=== PATIENT | female | born 1965 | race Caucasian/White ===

== ENCOUNTER 2020-02-05 13:50 | Inpatient (IN) | payer OTHER, SELFPAY ==
[2020-02-05] VITALS (20 sets, daily range): BP systolic 108–156; BP diastolic 55–80; PULSE 80–99; RESP 16–24; TEMP 38.2–38.7; O2SAT 93–99; BMI 30.9
--- NOTE | ~2020-02-05 | US_ITS ---
EXAMINATION: US right upper quadrant DATE: 02/06/2020 15:40 INDICATION: Elevated liver function tests TECHNIQUE: Multiple grayscale and Doppler ultrasound images of the abdomen were obtained. COMPARISON: None available FINDINGS: The head and and body of the pancreas are normal. The pancreatic tail is obscured by bowel gas. The liver is normal with normal echogenicity and echotexture. No surface nodularity. Normal hepa topetal flow in the main portal vein. The gallbladder is normal with no abnormal wall thickening, per icholecystic fluid or stones. The normal common bile duct measures 3 mm. There was no sonographic Mur phy sign. IMPRESSION: 1. Normal sonographic study of the gallbladder. Reviewed, dictated and finalized at location A.
--- NOTE | 2020-02-05 13:53 | ECG_ITS ---
Measurements Intervals [place] Rate: 89 P: 54 MO: 138 QRS: -40 QRSD: 105 T: 47 QT: 339 QTc: 414 Interpretive Statements SINUS RHYTHM POSSIBLE LEFT ATRIAL ENLARGEMENT LEFT AXIS DEVIATION LOW QRS VOLTAGE IN PRECORDIAL LEADS BORDERLINE T WAVE ABNORMALITY- HIGH LATERAL LEADS BASELINE ARTIFACT- I, II, AVR, V4-V6 BORDERLINE ECG Electronically Signed On 02-05-2020 13:58:30 CDT by Jay Ji D.O.
--- NOTE | 2020-02-05 14:00 | PC.NURSE ---
1400-pt to medical lab specialist per team 1358-pads applied, groin shaved, two IVs in place, blood sent per this nurse. dr mars and dr wood at patient bedside
--- NOTE | 2020-02-05 14:03 | ED.CHESTPAIN ---
HPI - Chest Pain General Chief Complaint: Chest Pain Stated Complaint: CP Time Seen by Provider: 02/05/20 13:53 Source: patient History of Present Illness HPI narrative: 54 years old white female complaining of intermittent chest pain over the last few days. Currently feeling okay. According to EMT, patient EKG showing acute STEMI. Patient came by ambulance, cardiology team at the bedside on arrival. I did not have a chance to ask other questions. Related Data Allergies Allergy/AdvReac Type Severity Reaction Status Date / Time NIFEDIPINE (Generic Allergy) Allergy Y Uncoded 01/30/03 15:04 Review of Systems Review of Systems: Narrative: CONSTITUTIONAL: Denies fever, chills, or sweats. EYES: Denies visual changes, redness, or discharge. ENT: Denies rhinorrhea, congestion, sore throat, or otalgia. CARDIOVASCULAR: Denies chest pain, palpitations, or edema. RESPIRATORY: Denies cough or dyspnea. GASTROINTESTINAL: Denies abdominal pain, nausea, vomiting, or diarrhea. GENITOURINARY: Denies dysuria or hematuria. SKIN: Denies rash or itching. MUSCULOSKELETAL: Denies back pain, joint pain, or myalgia. NEUROLOGIC: Denies headache, numbness, or weakness. PSYCHIATRIC: Denies anxiety or depression. [facility], [facility] Family History Family History Other Diabetes mellitus Family history of malignant neoplasm Family history of type 2 diabetes mellitus Hypertension Social History Social History Smoking status: Never smoker Second hand tobacco smoke exposure: No Alcohol intake: current Exam Narrative: Exam Narrative: General appearance: Well-developed, well-nourished Skin: Normal color Head: Normocephalic, nontraumatic Eyes: Clear conjunctiva ENT: Oropharynx normal, ears normal, nose normal Neck: Supple, nontender Chest and respiratory: Airway patent, no respiratory distress, no accessory muscle use Heart: Regular rate/rhythm Abdomen: Soft, nontender, no organomegaly, quiet bowel sounds Vascular: Normal peripheral pulses, normal capillary refill. Musculoskeletal: Normal range of motion, nontender back Neurologic: Alert and oriented ?3, CUSTOMER ENERGY SPECIALIST is normal as tested, no gross motor deficit Course Course Emergency Course: Chest pain resolved Vital Signs Vital signs: Vital Signs Temperature 38.2 C H 02/05/20 13:51 Pulse Rate 96 02/05/20 13:51 Respiratory Rate 20 02/05/20 13:51 Blood Pressure 156/76 H 02/05/20 13:51 Pulse Oximetry 97 02/05/20 13:51 Temperature 38.2 C H 02/05/20 13:51 Pulse Rate 92 02/05/20 14:01 Respiratory Rate 17 02/05/20 14:01 Blood Pressure 146/80 H 02/05/20 14:01 Pulse Oximetry 98 02/05/20 14:01 MDM - Chest Pain MDM Narrative Medical decision making narrative: STEMI is my concern. Possible posterior PA. Patient is going to cardiac cath immediately Critical Care Time Critical Care Time Critical Care Time: No Discharge Plan Discharge Prescriptions: No Action lisinopril-hydrochlorothiazide 20-12.5 mg tablet See Rx Instructions .ROUTE .COMPLEX Qty: 60 RF: 2 citalopram 20 mg tablet See Rx Instructions .ROUTE .COMPLEX Qty: 30 RF: 2 Interventions: Discharge Disposition Last Done: 02/05/20 14:05 IV Removed Last Done: 02/05/20 14:05 IV Stop Time Documented Last Done: 02/05/20 14:05 Discharge Date/Time: 02/05/20 14:00
[2020-02-05 14:06] LABS: Basophils Absolute Auto 0.1 K/mm3 (0.0-0.1); Basophils Percent Auto 0.4 % (0.2-1.2); Eosinophils Percent Auto 0.2 % (0-4.4); Hematocrit 46.5 % (37.0-47.0); Hemoglobin 15.4 g/dL (12.0-15.0); Immature Granulocyte Absolute 0.08 K/mm3 (0.00-0.031); Immature Granulocyte Percent A 0.6 % (0-0.5); Lymphocytes Absolute Auto 1.51 K/mm3 (0.9-3.2); Lymphocytes Percent Auto 10.8 % (18.3-44.2); Mean Corpuscular HGB Conc 33.1 g/dl (32-36); Mean Corpuscular Hemoglobin 29.4 pg (26-34); Mean Corpuscular Volume 88.7 fl (80-100); Mean Platelet Volume 10.5 fl (7.4-10.4); Monocytes Absolute Auto 1.6 K/mm3 (0.1-0.6); Monocytes Percent Auto 11.5 % (2.6-8.5); Neutrophils Absolute Auto 10.8 K/mm3 (1.3-6.7); Neutrophils Percent Auto 76.5 % (45.5-73.1); Platelet Count Result 301 k/mm3 (150-375); Red Blood Count 5.24 M/mm3 (4.2-5.4); Red Cell Distribution Width 12.5 % (11.5-14.5)
--- NOTE | 2020-02-05 14:13 | P.SEDATION_ITS ---
Moderate Sedation Note-Pt Data Patient Data Allergies Allergy/AdvReac Type Severity Reaction Status Date / Time NIFEDIPINE (Generic Allergy) Allergy Y Uncoded 01/30/03 15:04 Home Medications Medication Instructions Recorded Confirmed Type citalopram 20 mg tablet See Rx Instructions .ROUTE 11/27/19 Rx .COMPLEX #30 tablet lisinopril 20 See Rx Instructions .ROUTE 11/27/19 Rx mg-hydrochlorothiazide 12.5 mg .COMPLEX #60 tablet tablet Current Medications: Active Medications Nitroglycerin (Nitrostat Subl 0.4 Mg (1/150)) 0.4 mg SUBLINGUAL Q5MIN PRN PRN Reason: Chest Pain Sedation/Anesthesia: No previous sedation/anesthesia problems (including family history). [facility] Family History Family History Other Diabetes mellitus Family history of malignant neoplasm Family history of type 2 diabetes mellitus Hypertension Social History Social History Smoking status: Never smoker Second hand tobacco smoke exposure: No Alcohol intake: current Mod Sed Physical Exam Physical Exam Pre Procedural Exam: Normal: Appearance, Eyes, Ears, Nose, Neck, Throat, Airway, Lungs, Heart Size, Heart Rate, Heart Rhythm, Neuro Exam, Abdomen, Liver, Kidneys, Spleen, Breasts, Genitalia, Extremities and Skin Hours since solid foods: 8 Hours since liquid intake: 8 Internal Medicine - PN: Obj Da Vital Signs Vital Signs: Vital Signs - 24 hr 02/05/20 13:51 02/05/20 14:01 Temperature 38.2 C H Pulse Rate 96 92 Respiratory Rate 20 17 Blood Pressure 156/76 H 146/80 H Pulse Oximetry 97 98 Meds/Results Medications: Active Medications Generic Name Dose Route Start Last Admin Trade Name Freq PRN Reason Stop Dose Admin Nitroglycerin 0.4 mg 02/05/20 14:09 Nitrostat Subl 0.4 Mg (1/150) SUBLINGUAL Q5MIN PRN Chest Pain Labs CBC & Chem 7: 02/05/20 13:59 02/05/20 14:00 Labs: Laboratory Results - last 24 hr 02/05/20 13:59 WBC 14.0 H RBC 5.24 Hgb 15.4 H Hct 46.5 MCV 88.7 MCH 29.4 MCHC 33.1 RDW 12.5 Plt Count 301 MPV 10.5 H Immature Gran % (Auto) 0.6 H Neut % (Auto) 76.5 H Lymph % (Auto) 10.8 L [place] % (Auto) 11.5 H Eos % (Auto) 0.2 Baso % (Auto) 0.4 Lymph # (Auto) 1.51 [place] # (Auto) 1.6 H Eos # (Auto) 0.0 Baso # (Auto) 0.1 Abs Immat Gran (auto) 0.08 H Absolute Neuts (auto) 10.8 H Absolute Nucleated RBC 0.0 Nucleated RBC % 0.0 ASA Classification/Sedation ASA Classification/Sedation ASA Class: I Emergent: No Risks: Risks, benefits and alternatives explained and patient/family accepted plan for sedation. Patient re-evaluated immediately prior to sedation.
--- NOTE | 2020-02-05 14:13 | PM.IMHP ---
H&P: HPI History of Present Illness Chief complaint: CP Narrative: date of service 02/05/2020 Michaela Arreguin is a 54 year old female with past history of hypertension, anxiety or) started Wednesday having shortness of breath, cough, central chest discomfort radiating to the upper back, low-grade fever. Symptoms remained all day long Wednesday and yesterday. today [facility] to [facility] and EKG was done that shows ST depression V1 to V3 and EMS did EKG with leads V7 to v [address] elevations. she arrived to the emergency room and was chest pain-free and the EKG in the emergency room really looked unremarkable. She was rushed to public works laborer to define coronary anatomy. denies smoking, alcohol use, initial troponin came out after we finished the procedure was 27. white count 14 Review of Systems Review of Systems: All systems reviewed & are unremarkable except as noted in HPI and below Constitutional: Constitutional: Reports chills, Denies fatigue, Reports fever(s), Denies headache(s) and Denies snoring Eyes: Eyes: Denies eye discharge and Denies loss of vision ENT: Denies dizziness, Denies headache(s), Denies nasal discharge and Denies sore throat Cardiovascular: Cardiovascular: Reports as per HPI, Reports chest pain, Denies syncope, Denies rapid heart rate, Denies leg edema, Reports dyspnea, Reports dyspnea on exertion, Denies orthopnea and Denies paroxysmal nocturnal dyspnea Respiratory: Respiratory: Denies chest congestion, Reports cough, Reports dyspnea, Reports dyspnea on exertion, Denies snoring and Denies wheezing Gastrointestinal: Gastrointestinal: Denies abdominal pain, Denies diarrhea, Denies nausea and Denies vomiting Genitourinary: Genitourinary: Denies hematuria, Denies urinary frequency, Denies dysuria and Denies flank pain Musculoskeletal: Musculoskeletal: Denies myalgias, Denies arthralgias and Denies joint swelling Neurologic: Denies Abnormal speech present, Denies dizziness, Denies syncope, Denies headache(s), Denies focal weakness and Denies loss of vision Psychiatric: Psychiatric: Denies anxiety and Denies depression Endocrine: Endocrine: Denies cold intolerance, Denies fatigue and Denies heat intolerance Hematologic/Lymphatic: Hematologic/Lymphatic: Denies easy bleeding and Denies easy bruising Allergic/Immunologic: Allergic/Immunologic: Denies urticaria and Denies wheezing PMFSH Past Medical History Medical History (Updated 02/05/20 @ 15:37 by Vonnie Green MD) Hypertension Family History Family History Other Diabetes mellitus Family history of malignant neoplasm Family history of type 2 diabetes mellitus Hypertension Social History Social History Smoking status: Never smoker Second hand tobacco smoke exposure: No Alcohol intake: current Meds Home Medications and Allergies Home Medications Medication Instructions Recorded Confirmed Type citalopram 20 mg tablet See Rx Instructions .ROUTE 11/27/19 Rx .COMPLEX #30 tablet lisinopril 20 See Rx Instructions .ROUTE 11/27/19 Rx mg-hydrochlorothiazide 12.5 mg .COMPLEX #60 tablet tablet Allergies Allergy/AdvReac Type Severity Reaction Status Date / Time NIFEDIPINE (Generic Allergy) Allergy Y Uncoded 01/30/03 15:04 Vital Signs Vital Signs - 24 hr 02/05/20 13:51 02/05/20 14:01 Temperature 38.2 C H Pulse Rate 96 92 Respiratory Rate 20 17 Blood Pressure 156/76 H 146/80 H Pulse Oximetry 97 98 Exam Const: General: cooperative, healthy appearing, comfortable, no acute distress and well developed Nutritional Appearance: well nourished Orientation/consciousness: patient oriented x3 HENMT: Head: normal to inspection, normocephalic and atraumatic Ears: hearing grossly normal bilaterally and external ears normal General nose exam: Normal external nose present and
--- NOTE | 2020-02-05 14:13 | WPDCARDPROC ---
Cardiac Cath Procedure Note Date of procedure:: 02/05/20 Performing physician:: Vonnie Green MD date of service 02/05/2020 Indication:: posterior STEMI. Brief clinical history:: Michaela Arreguin is a 54 year old female with past history of hypertension, anxiety or) started Wednesday having shortness of breath, cough, central chest discomfort radiating to the upper back, low-grade fever. Symptoms remained all day long Wednesday and yesterday. today she was brought in to [facility] to rule out COVID and EKG was done that shows ST depression V1 to V3 and EMS did EKG with leads V7 to v [address] elevations. she arrived to the emergency room and was chest pain-free and the EKG in the emergency room really looked unremarkable. She was rushed to laborer airport maintenance to define coronary anatomy. denies smoking, alcohol use, initial troponin came out after we finished the procedure was 27. white count 14 Procedure Procedure performed:: 1-Moderate sedation that started at 2:17 p.m. and ended at 3:12 p.m. using 3 mg of Versed and 50mcg fentanyl. The registered nurse was love schultz 2-Selective left and right coronary angiogram. 3-Left heart catheterization with measurement of LVEDP and measurement of gradient across aortic valve. 4- LV angiogram. 5- deployment drug-eluting stent 3 x 18 Xience to proximal mid left circumflex artery with RAYSA flow was 0 before intervention of the after intervention. 4-Right common femoral arterial angiogram. Sedation/Medication given:: Moderate sedation. Access site:: Right common femoral artery. hemostasis: manual compression Estimated blood loss:: 10cc Procedure note:: After informed consent patient was brought in to laborer airport maintenance with the was draped and prepped in usual manner. Moderate sedation was given and the right groin was infiltrated using 1% lidocaine. Five St Helenian sheath was obtained using micropuncture needle and the modified Seldinger technique. Selective left coronary angiogram was done using JL4 catheter with the tip of the catheter placed in the left main coronary artery. after that we tried to engage the left main coronary artery and we tried CLS 3.5, q.4, Q 3.5, JL4, and eventually we engaged that using CLS 3 guide catheter. After that coronary lead wire was advanced to distal left circumflex artery. Balloon angioplasty done using 2.5 x 15 balloon with inflation done on the 10 atmospheres for 20 seconds with 2 inflations. And then deployed drug-eluting stent Xience 3 x 18 Covering the proximal and midportion of the left circumflex artery with deployment done and the number pressure for 23 seconds.Selective right coronary angiogram was done using JR4 catheter with the tip of the catheter placed to the right coronary artery. After that 5 [place] pigtail catheter was advanced across the aortic valve into the left ventricle with measurement of LVEDP and measurement of gradient across aortic valve. LV angiogram. Right common femoral arterial angiogram was done. Findings:: 1- left coronary artery is a large artery that divides into large LAD, large circumflex artery. Left main is Free of disease. 2- left anterior descending artery is a large artery that runs and wraps around the apex. it is large in caliber proximally with minimal irregularities. The mid segment gives rise to large diagonal branch. The diagonal branch has mid 40%. Then the left anterior descending artery continues with diffuse 30% stenosis. At the very distal end at the apex with the arteries very tiny there is about 90% stenosis. 3- left circumflex artery is a large artery And codominant and occluded in the mid segment. After opening the artery and use ice to small om 1 distally and small OM2 and small caliber PDA about looked with minimal irregularities. 4- right coronary artery is large artery and codominant with diffuse minimal irregularities in the mid segment 50%. 5- LVEDP was 15 mm Hg and no gradient across aortic valve. 6- opening arterial pr
[2020-02-05 14:20] LABS: INR 1.1; Prothrombin Time 14.2 Seconds (11.1-14.7)
[2020-02-05 14:21] LABS: Partial Thromboplastin Time 27.6 SECONDS (22.3-36.8)
[2020-02-05 14:41] LABS: Blood Urea Nitrogen 13 mg/dL (7-17); Carbon Dioxide 34 mmol/L (22-30); Chloride 98 mmol/L (98-107); Cholesterol 207 mg/dL (0-200); Estimated CRCL calculation 88 ml/min; Estimated Glomerular Filt Rate > 60; Glucose 136 mg/dL (65-105); HDL Direct 49 mg/dL; Potassium 3.7 mmol/L (3.4-5.0); Sodium 134 mmol/L (137-145); Triglycerides 121 mg/dL (<150)
[2020-02-05 14:42] LABS: Alanine Aminotransferase 51 U/L (4-35); Albumin Level 4.2 g/dL (3.5-5.1); Alkaline Phosphatase 100 U/L (38-126); Aspartate Amino Transferase 233 U/L (14-36); Bilirubin,Total 1.5 mg/dL (0.2-1.3); Blood Urea Nitrogen 13 mg/dL (7-17); Calcium 8.9 mg/dL (8.4-10.2); Carbon Dioxide 35 mmol/L (22-30); Chloride 98 mmol/L (98-107); Estimated CRCL calculation 88 ml/min; Estimated Glomerular Filt Rate > 60; Glucose 136 mg/dL (65-105); Potassium 3.7 mmol/L (3.4-5.0); Sodium 134 mmol/L (137-145)
[2020-02-05 14:51] LABS: LDL Cholesterol Direct 117 mg/dL
--- NOTE | 2020-02-05 15:26 | ECG_ITS ---
Measurements Intervals [place] Rate: 86 P: 58 [place]: 153 QRS: -33 QRSD: 91 T: 49 QT: 358 QTc: 430 Interpretive Statements SINUS RHYTHM LOW QRS VOLTAGE IN PRECORDIAL LEADS INFERIOR INFARCT, AGE INDETERMINATE BORDERLINE T WAVE ABNORMALITY- ANTEROLAT/LAT LEADS BASELINE ARTIFACT- I, III, AVR, AVL ABNORMAL ECG Electronically Signed On 02-06-2020 10:21:43 CDT by Jay Ji D.O.
--- NOTE | 2020-02-05 16:09 | ADMGEN ---
This patient, Michaela Arreguin, was admitted to Intensive Care Unit-3. Patient/family oriented to hospital policies and general routines including ID bracelet, bed and alarms, visiting hours, pain management, procedures, bathroom and other care routines, personal items, smoking policy, room service/diet, and visiting hours. Valuables list has been completed. Information on how to activate the Rapid Response Team has been discussed. Patient/Family are encouraged to report perceived risks to care and to ask questions if they do not understand what they are told or what they should do.
[2020-02-05] MEDS: SODIUM CHLORIDE 0.9% IV 1,000 ML 100 ML IV CONT (16:54)
[2020-02-05] MEDS: METOPROLOL TARTRATE 12.5 MG TABLET PO (21:13)
[2020-02-05] MEDS: TICAGRELOR 90 MG TABLET PO (21:14)
[2020-02-05] MEDS: TEMAZEPAM 15 MG CAPSULE PO (22:20)
[2020-02-06] VITALS (15 sets, daily range): BP systolic 80–143; BP diastolic 43–82; PULSE 78–99; RESP 16–20; TEMP 36.9–37.7; O2SAT 93–100
[2020-02-06] MEDS: ACETAMINOPHEN 325 MG TABLET 650 MG PO (08:01)
[2020-02-06 08:02] LABS: Basophils Percent Auto 0.3 % (0.2-1.2); Eosinophils Percent Auto 0.2 % (0-4.4); Hematocrit 39.9 % (37.0-47.0); Hemoglobin 13.2 g/dL (12.0-15.0); Immature Granulocyte Absolute 0.07 K/mm3 (0.00-0.031); Immature Granulocyte Percent A 0.6 % (0-0.5); Lymphocytes Absolute Auto 1.44 K/mm3 (0.9-3.2); Lymphocytes Percent Auto 12.4 % (18.3-44.2); Mean Corpuscular HGB Conc 33.1 g/dl (32-36); Mean Corpuscular Hemoglobin 29.3 pg (26-34); Mean Corpuscular Volume 88.7 fl (80-100); Mean Platelet Volume 10.4 fl (7.4-10.4); Monocytes Absolute Auto 1.2 K/mm3 (0.1-0.6); Monocytes Percent Auto 9.9 % (2.6-8.5); Neutrophils Absolute Auto 8.9 K/mm3 (1.3-6.7); Neutrophils Percent Auto 76.6 % (45.5-73.1); Platelet Count Result 286 k/mm3 (150-375); Red Cell Distribution Width 12.8 % (11.5-14.5); White Blood Count 11.6 K/mm3 (4.5-10.0)
[2020-02-06] MEDS: METOPROLOL TARTRATE 12.5 MG TABLET PO ×2 (08:02→20:11)
[2020-02-06] MEDS: ATORVASTATIN 40 MG TABLET PO (08:02)
[2020-02-06] MEDS: TICAGRELOR 90 MG TABLET PO ×2 (08:02→20:11)
[2020-02-06 08:19] LABS: D Dimer 0.23 ug/mL (<0.48)
[2020-02-06 08:23] LABS: Alanine Aminotransferase 43 U/L (4-35); Albumin Level 3.4 g/dL (3.5-5.1); Alkaline Phosphatase 90 U/L (38-126); Aspartate Amino Transferase 131 U/L (14-36); Bilirubin,Total 1.4 mg/dL (0.2-1.3); Blood Urea Nitrogen 12 mg/dL (7-17); Calcium 8.1 mg/dL (8.4-10.2); Carbon Dioxide 28 mmol/L (22-30); Chloride 102 mmol/L (98-107); Estimated CRCL calculation 97 ml/min; Estimated Glomerular Filt Rate > 60; Glucose 178 mg/dL (65-105); Lactate Dehydrogenase 1621 U/L (313-618); Magnesium 1.9 mg/dL (1.6-2.3); Phosphorus 2.2 mg/dL (2.5-4.5); Potassium 3.3 mmol/L (3.4-5.0); Sodium 133 mmol/L (137-145)
--- NOTE | 2020-02-06 08:25 | WPDCNINT ---
Assessment and Plan Assessment and plan (1) STEMI (ST elevation myocardial infarction): Code(s): I21.3 - ST elevation (STEMI) myocardial infarction of unspecified site Status: Acute Assessment and Plan: Patient presented with chest pain, shortness of breath, cough, fevers EKG showed ST-elevation OK status post PTCA/PCI with MADI x1 to left circumflex -cardiology following the patient closely -continue aspirin, statin, metoprolol, Brilinta, (2) Suspected 2019 novel coronavirus infection: Code(s): Z20.828 - Contact with and (suspected) exposure to other viral communicable diseases Status: Acute Assessment and Plan: Patient was symptoms of shortness of breath, cough, fevers with a T-max of 101.7? -SARS-CoV-2 PCR has been obtained and pending -patient on droplet, airborne, contact isolation/precautions -D-dimer within normal limits, LDH is elevated, -ferritin and CRP pending (3) Hypertension: Qualifiers: Hypertension type: essential hypertension Qualified Code(s): I10 - Essential (primary) hypertension Code(s): I10 - Essential (primary) hypertension Status: Acute Assessment and Plan: Patient with essential hypertension, continue metoprolol (4) Hyperlipidemia: Qualifiers: Hyperlipidemia type: unspecified Qualified Code(s): E78.5 - Hyperlipidemia, unspecified Code(s): E78.5 - Hyperlipidemia, unspecified Status: Acute Assessment and Plan: Continue statin Additional Plan Discussed with patient in details regarding her symptoms and that this SARS-CoV-2 PCR has been obtained pending. She is aware that the inflammatory markers have been ordered. Currently on room air with good O2 sats and no symptoms of cough or shortness of breath, denies chest pain. Code status: Full code Critical care time spent: 41 minutes Due to a high probability of clinically significant, life threatening deterioration, the patient required my highest level of preparedness to intervene emergently and I personally spent this critical care time directly and personally managing the patient. This critical care time included obtaining a history; examining the patient; pulse oximetry; ordering and review of studies; arranging urgent treatment with development of a management plan; evaluation of patient's response to treatment; frequent reassessment; and discussions with other providers. It was exclusive of separately billable procedures and treating other patients and teaching time. Please see Assessment and Plan section and the rest of the note for further information on patient assessment and treatment Double Head Machine Operator Consult Note Consult date: 02/06/20 Time Seen: 07:08 Reason for consult: STEMI, status post PTCA/PCI with MADI x1 to left circumflex HPI: Michaela Arreguin is a 54 year old female with past medical history of essential hypertension and anxiety presented to the ED via EMS with chest pain radiating to the back, shortness of breath, cough and low-grade fever with started on 02/03/2020. Patient continued to have symptoms all day on 02/02 and to 02/03 and presented to the hospital on 02/05/2020. EKG with ST depression from we want to V3. The EKG done by the EMS showed ST elevations. Patient was emergently taken to the cardiac wood preserving plant laborer for coronary angiogram. Patient had a PTCA/PCI with MADI to left circumflex. Patient was transferred to the ICU for further management. Given her symptoms of chest pain, shortness of breath, cough and low-grade fevers patient was swabbed for SARS-CoV-2 PCR. Patient seen and examined this morning in the ICU. Remains on room air with 97 to 100% oxygen saturations. Patient denies any chest pain, shortness of breath, nausea vomiting at this time. Patient has been febrile low-grade fevers overnight and a T-max of 101.7? last night. Patient's lymphocyte percentage is low. Does not have any other complaints. Urine output has been adequate. LDH is
[2020-02-06 08:38] LABS: Hemoglobin A1C 6.2 % (<5.7)
[2020-02-06] MEDS: ASPIRIN 81 MG ENTERIC TABLET PO (08:51)
[2020-02-06 09:15] LABS: Hepatitis B Surface Antigen Negative (Negative)
[2020-02-06 09:21] LABS: HAV RESULT Negative (Negative); Hepatitis B Core IgM Result Negative (Negative)
[2020-02-06 09:28] LABS: CRP 18.2 mg/dL (<1.0)
[2020-02-06 09:33] LABS: Hepatitis C Virus Antibody Negative (Negative)
[2020-02-06] MEDS: POTASSIUM CHLORIDE 20 MEQ TABLET 40 MEQ PO (10:55)
--- NOTE | 2020-02-06 11:10 | PM.CNCAR ---
History of Present Illness History of Present Illness Consult date/time: 02/06/20 11:10 Date of service-02/06/2020 Chief complaint: Reason For Visit: CP [facility] Past Medical History Medical History (Updated 02/06/20 @ 08:37 by Tyrone Staley MD) Hypertension Family History Family History Other Diabetes mellitus Family history of malignant neoplasm Family history of type 2 diabetes mellitus Hypertension Social History Social History Smoking packs per day: 0.5 Smoking cigarettes per day: 10.0 Years smoked: 20 Smoking pack-years: 10.00 Smoking status: Former smoker Tobacco type: cigarettes Second hand tobacco smoke exposure: No Smoking end date: 08/09/04 Alcohol intake: current Drinks per week: 1 Substance use: never Gender identity (if verbalized by the patient): Female Spiritual care concerns: No Meds Home Medications and Allergies Home Medications Medication Instructions Recorded Confirmed Type citalopram 20 mg PO DAILY 02/05/20 02/05/20 History lisinopril-hydrochlorothiazide 1 tablet PO BID 02/05/20 02/05/20 History Allergies Allergy/AdvReac Type Severity Reaction Status Date / Time NIFEDIPINE (Generic Allergy) Allergy Y Uncoded 01/30/03 15:04 Vital Signs Vital Signs - 24 hr 02/05/20 13:51 02/05/20 14:01 02/05/20 15:45 Temperature 38.2 C H Pulse Rate 96 92 84 Pulse Rate [Right Pedal (Dorsalis Pedis) Doppler] 84 Respiratory Rate 20 17 24 H Blood Pressure 156/76 H 146/80 H 131/65 Pulse Oximetry 97 98 93 02/05/20 16:00 02/05/20 16:30 02/05/20 17:21 Temperature Pulse Rate 81 82 81 Pulse Rate [Right Pedal (Dorsalis Pedis) Doppler] Respiratory Rate 18 20 18 Blood Pressure 126/66 119/65 126/66 Pulse Oximetry 95 96 95 02/05/20 17:22 02/05/20 17:23 02/05/20 17:31 Temperature Pulse Rate 80 84 81 Pulse Rate [Right Pedal (Dorsalis Pedis) Doppler] Respiratory Rate 16 18 18 Blood Pressure 120/65 119/64 126/62 Pulse Oximetry 96 96 97 02/05/20 18:00 02/05/20 20:00 02/05/20 20:43 Temperature 38.7 C H Pulse Rate 85 88 93 Pulse Rate [Right Pedal (Dorsalis Pedis) Doppler] Respiratory Rate 18 20 18 Blood Pressure 132/67 143/74 H 142/80 H Pulse Oximetry 98 98 97 02/05/20 21:00 02/05/20 21:09 02/05/20 21:13 Temperature Pulse Rate 89 94 91 Pulse Rate [Right Pedal (Dorsalis Pedis) Doppler] Respiratory Rate 20 18 Blood Pressure 119/63 114/67 Pulse Oximetry 96 97 02/05/20 21:31 02/05/20 22:00 02/05/20 22:18 Temperature 38.2 C H Pulse Rate 99 90 Pulse Rate [Right Pedal (Dorsalis Pedis) Doppler] Respiratory Rate 17 Blood Pressure 131/71 Pulse Oximetry 99 02/05/20 22:31 02/05/20 23:00 02/06/20 00:00 Temperature 37.6 C Pulse Rate 82 82 83 Pulse Rate [Right Pedal (Dorsalis Pedis) Doppler] Respiratory Rate 19 20 19 Blood Pressure 108/61 111/55 L 116/61 Pulse Oximetry 97 94 97 02/06/20 01:00 02/06/20 02:00 02/06/20 04:00 Temperature 37.7 C H Pulse Rate 79 87 87 Pulse Rate [Right Pedal (Dorsalis Pedis) Doppler] Respiratory Rate 18 18 19 Blood Pressure 80/43 L 130/72 107/48 L Pulse Oximetry 97 98 97 02/06/20 06:00 02/06/20 08:00 02/06/20 08:02 Temperature 37.7 C H Pulse Rate 86 96 97 Pulse Rate [Right Pedal (Dorsalis Pedis) Doppler] Respiratory Rate 16 20 Blood Pressure 106/58 L 113/63 Pulse Oximetry 96 97 02/06/20 10:00 Temperature Pulse Rate 80 Pulse Rate [Right Pedal (Dorsalis Pedis) Doppler] Respiratory Rate 16 Blood Pressure 97/67 L Pulse Oximetry 97 Results Labs and Meds Result diagrams: 02/06/20 07:55 02/06/20 07:54 Lab results: Cardiac Enzymes 02/05/20 02/05/20 02/06/20 Range/Units 14:00 14:00 07:54 AST 233 H 131 H (14-36) U/L Lactate Dehydrogenase 1621 H (313-618) U/L Troponin I Cancelled
--- NOTE | 2020-02-06 11:13 | PM.PNCARD ---
Progress Note: A&P Assessment and Plan (1) STEMI (ST elevation myocardial infarction): Code(s): I21.3 - ST elevation (STEMI) myocardial infarction of unspecified site Status: Acute Assessment and Plan: Patient is status primary post PCI/MADI x1 LCX. Currently clinically and hemodynamically stable. Continue dual antiplatelet therapy with aspirin and ticagrelor; low-dose beta-otis, statin. Monitor on telemetry for any arrhythmias. Monitor hemodynamics. (2) Suspected 2018 novel coronavirus infection: Code(s): Z20.828 - Contact with and (suspected) exposure to other viral communicable diseases Status: Acute Assessment and Plan: Patient is currently in isolation, and undergoing workup for possible COVID-19 infection. Management as per intensive care physician. Subjective Date/time seen: 02/06/20 11:13 Date of service-02/06/2020 Chief complaint: Chest pain has resolved Interval history: Patient remains in the ICU, in the isolation. She is currently undergoing testing for COVID-19. She was febrile. From cardiac standpoint, she is chest pain free. Patient was seen from outside the room through the glass panel, as she is in isolation for COVID-19. Information was also gathered from the review of the chart and from the nursing staff. Exam Narrative: Exam Narrative: Patient was evaluated through the class panel. She appears comfortable. Extraocular movements are intact. Intact judgment. No lower extremity edema. Groin site unremarkable as per nursing staff. Objective Data Vital Signs Vital Signs: Vital Signs - 24 hr 02/05/20 13:51 02/05/20 14:01 02/05/20 15:45 Temperature 38.2 C H Pulse Rate 96 92 84 Pulse Rate [Right Pedal (Dorsalis Pedis) Doppler] 84 Respiratory Rate 20 17 24 H Blood Pressure 156/76 H 146/80 H 131/65 Pulse Oximetry 97 98 93 02/05/20 16:00 02/05/20 16:30 02/05/20 17:21 Temperature Pulse Rate 81 82 81 Pulse Rate [Right Pedal (Dorsalis Pedis) Doppler] Respiratory Rate 18 20 18 Blood Pressure 126/66 119/65 126/66 Pulse Oximetry 95 96 95 02/05/20 17:22 02/05/20 17:23 02/05/20 17:31 Temperature Pulse Rate 80 84 81 Pulse Rate [Right Pedal (Dorsalis Pedis) Doppler] Respiratory Rate 16 18 18 Blood Pressure 120/65 119/64 126/62 Pulse Oximetry 96 96 97 02/05/20 18:00 02/05/20 20:00 02/05/20 20:43 Temperature 38.7 C H Pulse Rate 85 88 93 Pulse Rate [Right Pedal (Dorsalis Pedis) Doppler] Respiratory Rate 18 20 18 Blood Pressure 132/67 143/74 H 142/80 H Pulse Oximetry 98 98 97 02/05/20 21:00 02/05/20 21:09 02/05/20 21:13 Temperature Pulse Rate 89 94 91 Pulse Rate [Right Pedal (Dorsalis Pedis) Doppler] Respiratory Rate 20 18 Blood Pressure 119/63 114/67 Pulse Oximetry 96 97 02/05/20 21:31 02/05/20 22:00 02/05/20 22:18 Temperature 38.2 C H Pulse Rate 99 90 Pulse Rate [Right Pedal (Dorsalis Pedis) Doppler] Respiratory Rate 17 Blood Pressure 131/71 Pulse Oximetry 99 02/05/20 22:31 02/05/20 23:00 02/06/20 00:00 Temperature 37.6 C Pulse Rate 82 82 83 Pulse Rate [Right Pedal (Dorsalis Pedis) Doppler] Respiratory Rate 19 20 19 Blood Pressure 108/61 111/55 L 116/61 Pulse Oximetry 97 94 97 02/06/20 01:00 02/06/20 02:00 02/06/20 04:00 Temperature 37.7 C H Pulse Rate 79 87 87 Pulse Rate [Right Pedal (Dorsalis Pedis) Doppler] Respiratory Rate 18 18 19 Blood Pressure 80/43 L 130/72 107/48 L Pulse Oximetry 97 98 97 02/06/20 06:00 02/06/20 08:00 02/06/20 08:02 Temperature 37.7 C H Pulse Rate 86 96 97 Pulse Rate [Right Pedal (Dorsalis Pedis) Doppler] Respiratory Rate 16 20 Blood Pressure 106/58 L 113/63 Pulse Oximetry 96 97 02/06/20 10:00 Temperature Pulse Rate 80 Pulse Rate [Right Pedal (Dorsalis Pedis) Doppler] Respiratory Rate 16 Blood Pressure 97/67 L Pulse Oximetry 97 Intake/Output Intake/Output: Intake & Output 02/03/20 02/04/20 02/05/20 02/06/20
[2020-02-06 19:45] LABS: SARS-CoV-2 RNA PCR Negative
[2020-02-06] MEDS: TEMAZEPAM 15 MG CAPSULE PO (21:28)
[2020-02-07] VITALS (9 sets, daily range): BP systolic 120–125; BP diastolic 55–78; PULSE 77–91; RESP 17–20; TEMP 36.8–37; O2SAT 97–98
[2020-02-07] MEDS: ATORVASTATIN 40 MG TABLET PO (08:02)
[2020-02-07] MEDS: ASPIRIN 81 MG ENTERIC TABLET PO (08:02)
[2020-02-07] MEDS: TICAGRELOR 90 MG TABLET PO (08:03)
[2020-02-07] MEDS: METOPROLOL TARTRATE 12.5 MG TABLET PO (08:03)
[2020-02-07 10:53] LABS: Blood Urea Nitrogen 12 mg/dL (7-17); Calcium 8.8 mg/dL (8.4-10.2); Carbon Dioxide 29 mmol/L (22-30); Chloride 101 mmol/L (98-107); Estimated CRCL calculation 84 ml/min; Estimated Glomerular Filt Rate > 60; Glucose 190 mg/dL (65-105); Sodium 135 mmol/L (137-145)
[2020-02-07 10:54] LABS: Alanine Aminotransferase 39 U/L (4-35); Albumin Level 3.8 g/dL (3.5-5.1); Alkaline Phosphatase 95 U/L (38-126); Aspartate Amino Transferase 64 U/L (14-36); Bilirubin,Total 0.6 mg/dL (0.2-1.3)
--- NOTE | 2020-02-07 17:31 | PM.DS ---
DS: Admitting Diagnosis Admitting Diagnosis Admitting Diagnosis: ST elevation (STEMI) myocardial infarction of unspecified site DS: Discharge Diagnosis Discharge Diagnosis (1) STEMI (ST elevation myocardial infarction): Code(s): I21.3 - ST elevation (STEMI) myocardial infarction of unspecified site Status: Acute Assessment and Plan: Status post primary post PCI/MADI x1 LCX 02/05/2020 Clinically and hemodynamically stable. Continue dual antiplatelet therapy with aspirin and ticagrelor; low-dose beta-otis, statin. Vital signs have been stable. (2) Suspected 2019 novel coronavirus infection: Code(s): Z20.828 - Contact with and (suspected) exposure to other viral communicable diseases Status: Acute Assessment and Plan: COVID was ruled out DS: Summary Hospital Course Reason for hospitalization: Chest pain ST-elevation myocardial infarction Hospital Course: 54 year old female with past history of hypertension, anxiety on Wednesday prior to admission started having shortness of breath, cough, central chest discomfort radiating to the upper back, low-grade fever. Symptoms remained all day long Wednesday and Wednesday. On 02/05/2020 [facility] out [facility] and EKG was done that showed ST depression V1 to V3. EMS did EKG with leads V7 to v [address]ations. When she arrived to the emergency room she was chest pain-free and the EKG in the emergency room really looked unremarkable. She was taken emergently to the cardiac catheterization technician to define coronary anatomy. The initial troponin which resulted after the procedure was 27. Findings were significant for: Left coronary artery is a large artery that divides into large LAD, large circumflex artery. Left main is free of disease. Left anterior descending artery is a large artery that runs and wraps around the apex. It is large in caliber proximally with minimal irregularities. The mid segment gives rise to large diagonal branch. The diagonal branch has mid 40%. Then the left anterior descending artery continues with diffuse 30% stenosis. At the very distal end at the apex with the arteries very tiny there is about 90% stenosis. Left circumflex artery is a large artery, codominant and occluded in the mid segment. After opening the artery small OM 1 distally and small OM2 and small caliber PDA about looked with minimal irregularities. Right coronary artery is large artery and codominant with diffuse minimal irregularities in the mid segment 50%. LVEDP was 15 mm Hg and no gradient across aortic valve. She proceeded on to intervention with deployment drug-eluting stent 3 x 18 Xience to proximal mid left circumflex artery. She was hemodynamically stable overnight. She had no further chest discomfort. COVID was ruled out. She had no arrhythmias. Right groin site was without swelling or bleeding. Small amount of ecchymosis around the site. Femoral bruit. Distal pulses intact. She was discharged home in stable and pain-free condition. This document was completed by using M*Modal [employer] Direct speech recognition software, therefore, rn occupational variances may occur. Status at Discharge Functional status at discharge: independent ambulation Overall status at discharge: patient is back to baseline Time Spent with Patient Time attestation: Total time spent providing and/or coordinating discharge services: 22 minutes were spent in the room along with her answering a number of questions regarding activity restrictions, medications, return to work, vacation plan and follow-up. Additional 20 minutes to do discharge summary, discharge orders and prescriptions. Total time 42 minutes Time spent: Greater than 30 minutes Exam Const: General: cooperative, healthy appearing, comfortable, no acute distress and well devel
== END 2020-02-07 12:15 | disposition home or self-care (01) | DRG 247 ==
LOC: ANHED 14:04 → ANHICU 14:09
PROVIDERS: Internal Medicine; Nurse Practitioner Adult Health; Admitting Provider Internal Medicine Cardiovascular Disease; Emergency Provider Emergency Medicine; PCP Family Medicine; Visit Provider Specialist
PROC: 4A023N7 Measurement of Cardiac Sampling and Pressure, Left Heart, Percutaneous Approach (ICD-10-PCS; CPT 93452; principal; 2020-02-05 13:55)
PROC: 027034Z Dilation of Coronary Artery, One Artery with Drug-eluting Intraluminal Device, Percutaneous Approach (ICD-10-PCS; 2020-02-05 13:55)
DX: I21.21 ST elevation (STEMI) myocardial infarction involving left circumflex coronary artery (principal); I10 Essential (primary) hypertension; E11.9 Type 2 diabetes mellitus without complications; Z20.828 Contact with and (suspected) exposure to other viral communicable diseases; R50.9 Fever, unspecified; F41.9 Anxiety disorder, unspecified; Z87.891 Personal history of nicotine dependence
CPT/HCPCS: 36415; 76705; 80048; 80053; 80061; 80074; 80076; 82728; 83036; 83615; 83735; 84100; 84484; 85025; 85380; 85610; 85730; 86140; 86850; 86900; 86901; 87635; 93005; 93458; 99285; A9270; C1725; C1769; C1874; C1887; C9606; C9803; J0583; J1644; J2250; J2405; J3010; J7030; J7040; U0003

== ENCOUNTER 2020-05-15 11:54 | Emergency (ER) | payer OTHER, SELFPAY ==
--- NOTE | ~2020-05-15 | XR_ITS ---
EXAMINATION: XR chest 2V DATE: 05/15/2020 17:01 INDICATION: Back pain, hypertension TECHNIQUE: PA and lateral views of the chest are obtained. COMPARISON: 10/06/2007 FINDINGS: The lungs are free of acute opacities. There is no pleural effusion or pneumothorax. The he art size is normal. A coronary artery stent is noted. There is mild thoracic spondylosis. IMPRESSION: 1. No acute cardiopulmonary abnormality. Reviewed, dictated and finalized at location A.
[2020-05-15 13:50] VITALS: BP 157/87; PULSE 59; RESP 18; TEMP 36.5; O2SAT 100
--- NOTE | 2020-05-15 13:55 | ECG_ITS ---
Measurements Intervals [place] Rate: 57 P: 47 CA: 171 QRS: -20 QRSD: 95 T: 52 QT: 422 QTc: 414 Interpretive Statements SINUS BRADYCARDIA DELAYED PRECORDIAL R/S TRANSITION BORDERLINE ST ABNORMALITY- LATERAL LEADS BORDERLINE ECG Electronically Signed On 05-16-2020 11:54:28 CDT by Jay Ji D.O.
[2020-05-15 15:37] VITALS: BP 165/84; PULSE 63; RESP 14; TEMP 36.8; O2SAT 98
[2020-05-15 16:17] LABS: Basophils Percent Auto 0.8 % (0.2-1.2); Eosinophils Absolute Auto 0.2 K/mm3 (0-0.3); Eosinophils Percent Auto 3.8 % (0-4.4); Hematocrit 42.9 % (37.0-47.0); Hemoglobin 14.1 g/dL (12.0-15.0); Immature Granulocyte Absolute 0.02 K/mm3 (0.00-0.031); Immature Granulocyte Percent A 0.4 % (0-0.5); Lymphocytes Absolute Auto 1.47 K/mm3 (0.9-3.2); Lymphocytes Percent Auto 29.2 % (18.3-44.2); Mean Corpuscular HGB Conc 32.9 g/dl (32-36); Mean Corpuscular Hemoglobin 28.8 pg (26-34); Mean Corpuscular Volume 87.7 fl (80-100); Mean Platelet Volume 10.9 fl (7.4-10.4); Monocytes Absolute Auto 0.5 K/mm3 (0.1-0.6); Monocytes Percent Auto 9.5 % (2.6-8.5); Neutrophils Absolute Auto 2.8 K/mm3 (1.3-6.7); Neutrophils Percent Auto 56.3 % (45.5-73.1); Platelet Count Result 269 k/mm3 (150-375); Red Blood Count 4.89 M/mm3 (4.2-5.4); Red Cell Distribution Width 12.8 % (11.5-14.5)
--- NOTE | 2020-05-15 16:21 | ED.BACK ---
HPI - Back Pain/Injury General Chief Complaint: Back Pain/Injury Stated Complaint: sent me - abnormal ekg Time Seen by Provider: 05/15/20 15:51 Source: patient Mode of arrival: ambulatory Limitations: no limitations History of Present Illness HPI Narrative: 54 years old white female woke up this morning with pressure like feeling between her shoulder blades worse with deep breathing and certain movements. Patient denies any recent new physical activities. Patient denies any fever, chills, nausea, vomiting, shortness of breath, chest pain, abdominal pain. History of hypertension, hyperlipidemia, heart attack with 1 coronary stent 3 months ago. Currently patient on aspirin and Brilinta Related Data Allergies Allergy/AdvReac Type Severity Reaction Status Date / Time nifedipine AdvReac Mild Verified 05/15/20 15:40 Review of Systems Review of Systems: Narrative: CONSTITUTIONAL: Denies fever, chills, or sweats. EYES: Denies visual changes, redness, or discharge. ENT: Denies rhinorrhea, congestion, sore throat, or otalgia. CARDIOVASCULAR: Denies chest pain, palpitations, or edema. RESPIRATORY: Denies cough or dyspnea. GASTROINTESTINAL: Denies abdominal pain, nausea, vomiting, or diarrhea. GENITOURINARY: Denies dysuria or hematuria. SKIN: Denies rash or itching. MUSCULOSKELETAL: Denies back pain, joint pain, or myalgia. NEUROLOGIC: Denies headache, numbness, or weakness. PSYCHIATRIC: Denies anxiety or depression. [facility] Past Medical History Medical History Chest pain History of ST elevation myocardial infarction (STEMI) Hyperlipidemia Hypertension MDD (major depressive disorder), recurrent episode, moderate Family History Family History Other Diabetes mellitus Family history of malignant neoplasm Family history of type 2 diabetes mellitus Hypertension Social History Social History Social History: Smoking packs per day: 0.5 Smoking cigarettes per day: 10.0 Years smoked: 20 Smoking pack-years: 10.00 Smoking status: Former smoker Tobacco type: cigarettes Second hand tobacco smoke exposure: No Smoking end date: 08/09/04 Alcohol intake: current Drinks per week: 1 Substance use: never Substance use type: does not use Gender identity (if verbalized by the patient): Female Spiritual care concerns: No Exam Narrative: Exam Narrative: General appearance: Well-developed, well-nourished Skin: Normal color Head: Normocephalic, nontraumatic Eyes: Clear conjunctiva ENT: Oropharynx normal, ears normal, nose normal Neck: Supple, nontender Chest and respiratory: Airway patent, no respiratory distress, no accessory muscle use Heart: Regular rate/rhythm Abdomen: Soft, nontender, no organomegaly, quiet bowel sounds Vascular: Normal peripheral pulses, normal capillary refill. Musculoskeletal: Normal range of motion, nontender back Neurologic: Alert and oriented ?3, [employer] is normal as tested, no gross motor deficit Course Course Emergency Course: Stable Vital Signs Vital signs: Vital Signs Temperature 36.5 C 05/15/20 13:50 Pulse Rate 59 L 05/15/20 13:50 Respiratory Rate 18 05/15/20 13:50 Blood Pressure 157/87 H 05/15/20 13:50 Pulse Oximetry 100 05/15/20 13:50 Temperature 36.8 C 05/15/20 15:37 Pulse Rate 63 05/15/20 15:37 Respiratory Rate 14 05/15/20 15:37 Blood Pressure 165/84 H 05/15/20 15:37 Pulse Oximetry 98 05/15/20 15:37 MDM - Back Pain/Injury MDM Narrative Medical decision making narrative: Patient work-up w
[2020-05-15 16:30] LABS: Partial Thromboplastin Time 25.6 SECONDS (22.3-36.8); Prothrombin Time 13.3 Seconds (11.1-14.7)
[2020-05-15 16:46] LABS: Anion Gap 3 mmol/L (8-16); Blood Urea Nitrogen 12 mg/dL (7-17); Calcium 9.3 mg/dL (8.4-10.2); Carbon Dioxide 32 mmol/L (22-30); Chloride 102 mmol/L (98-107); Estimated CRCL calculation 92 ml/min; Estimated Glomerular Filt Rate > 60; Glucose 117 mg/dL (65-105); Potassium 4.3 mmol/L (3.4-5.0); Sodium 137 mmol/L (137-145)
[2020-05-15 16:52] LABS: D Dimer 0.29 ug/mL (<0.48)
[2020-05-15 16:58] LABS: Troponin I 0.014 ng/mL (0.000-0.034)
[2020-05-15 18:04] VITALS: BP 147/85; PULSE 84; RESP 16; O2SAT 98
[2020-05-15 18:05] VITALS: BP 157/89; PULSE 89; RESP 16; O2SAT 98
== END 2020-05-15 18:26 | disposition left against medical advice (07) ==
PROVIDERS: Emergency Provider Emergency Medicine; PCP Family Medicine
DX: M54.6 Pain in thoracic spine (principal); Z87.891 Personal history of nicotine dependence; I25.2 Old myocardial infarction; E78.5 Hyperlipidemia, unspecified; I10 Essential (primary) hypertension; Z95.5 Presence of coronary angioplasty implant and graft; Z79.82 Long term (current) use of aspirin
CPT/HCPCS: 36415; 71046; 80048; 84484; 85025; 85380; 85610; 85730; 93005; 99284

== ENCOUNTER 2022-12-09 11:31 | Emergency (ER) | payer OTHER, SELFPAY ==
[2022-12-09 11:40] VITALS: BP 146/81; PULSE 83; RESP 16; TEMP 36.7; O2SAT 98
--- NOTE | 2022-12-09 11:46 | ED.URI ---
HPI - URI/Sore Throat General Chief Complaint: Upper Respiratory Infection Stated Complaint: SORE THROAT Time Seen by Provider: 12/09/22 11:46 Source: patient, RN notes reviewed and old records reviewed Mode of arrival: ambulatory Limitations: no limitations History of Present Illness HPI Narrative: 57 year old female who [facility] with sore since yesterday with some body aches and some nasal drainage,no fevers noted. Patient states positive exposure to strep, grandchild was diagnosed with strep recently. Patient denies any fevers, any chills, or any body aches, has significant postnasal drainage, patient has been taking some Tylenol also some Cepacol throat lozenges. MD elicited complaint: sore throat, rhinorrhea and nasal congestion Onset (ago): day(s) (since yesterday) Pain scale (0-10): 5 Able to tolerate fluids by mouth: Yes Treatments prior to arrival: acetaminophen and other (Cepacol throat lozenges) Related Data Allergies Allergy/AdvReac Type Severity Reaction Status Date / Time nifedipine AdvReac Mild SOB Verified 12/09/22 11:43 Review of Systems Review of Systems: CONSTITUTIONAL: Denies malaise, chills, sweats, or fever. EYES: Denies visual changes, redness, or discharge. ENT: Reports rhinorrhea, congestion, sinus pain, no otalgia positive for sore throat. CARDIOVASCULAR: Denies chest pain, palpitations, or edema. RESPIRATORY: Reports no cough.? Denies dyspnea. GASTROINTESTINAL: Denies abdominal pain, nausea, vomiting, diarrhea SKIN: Denies rash or itching. MUSCULOSKELETAL: reports myalgia. NEUROLOGIC: Denies headache. All systems reviewed & are unremarkable except as noted in HPI and below PMFSH Past Medical History Medical History (Updated 12/09/22 @ 11:57 by Marysol Valle NP) Chest pain Contusion of hip, right Coronary artery disease COVID-[address] elevation myocardial infarction (STEMI) Hyperlipidemia MDD (major depressive disorder), recurrent episode, moderate Mitral regurgitation Squeezing chest pain Surgical History Surgical History History of section x2 Stented coronary artery Family History Family History Grandparent Diabetes mellitus Acute myocardial infarction Cancer unknown Father Acute myocardial infarction, Onset Age: 50 Alzheimer disease Other Family history of malignant neoplasm Family history of type 2 diabetes mellitus Hypertension Social History Social History Social History: Smoking packs per day: 0.5 Smoking cigarettes per day: 10.0 Years smoked: 20 Smoking pack-years: 10.00 Smoking status: Never smoker Tobacco type: cigarettes Second hand tobacco smoke exposure: No Alcohol intake: current Alcohol use details: Occasionally Substance use: never Substance use type: does not use Living arrangements: with family Occupation/Education: occupation Gender identity (if verbalized by the patient): Female Sexual Orientation (if Verbalized by the Patient): Straight or Heterosexual Spiritual care concerns: No Comments At time of signature, agree with nursing past medical, surgical, social and family history. There is no relevant family history pertinent to the presenting complaint Exam Narrative: GENERAL: Well-appearing, well-nourished, and in no acute distress. HEAD: Normocephalic EYES: PERRLA, conjunctivae clear ENT: Nares clear, turbinates edematous and erythematous, clear discharge. Mucous membranes moist. TM pearly mulligan with dull light reflex bilaterally; no tragal tenderness. Oropharynx erythematous without lesions. Tonsils red enlarged and without exudate, no drooling, no hoarseness, no trismus, uvula midline. nasal drainage noted NECK: Supple. No lymphadenopathy CHEST: C
== END 2022-12-09 12:00 | disposition home or self-care (01) ==
PROVIDERS: Emergency Provider Registered Nurse; PCP Family Medicine
DX: J02.0 Streptococcal pharyngitis (principal); I25.10 Atherosclerotic heart disease of native coronary artery without angina pectoris; I25.2 Old myocardial infarction; E78.5 Hyperlipidemia, unspecified; I34.0 Nonrheumatic mitral (valve) insufficiency; F32.9 Major depressive disorder, single episode, unspecified
CPT/HCPCS: 87081; 87147; 87880; 99213; G0463

== ENCOUNTER 2022-12-11 07:13 | Emergency (ER) | payer OTHER, SELFPAY ==
[2022-12-11 07:13] VITALS: BP 164/86; PULSE 99; RESP 14; TEMP 36.3; O2SAT 99
--- NOTE | 2022-12-11 07:38 | ED.EAR ---
HPI - Ear Problem General Chief complaint: Ear Stated complaint: left ear pain Time Seen by Provider: 12/11/22 07:23 History of Present Illness HPI Narrative: Patient is a 57-year-old female who presents ER with drainage from the left ear. Its bloody in nature. Reports she has been having increasing pain in bilateral ears over the last 4 to 5 days. No fevers or chills or sweats. Has taken Coricidin to help with sinus congestion. Was seen at an urgent care and diagnosed with a viral URI/pharyngitis. She has some decreased hearing in her left ear. Patient reports she tried to clean her left ear with a Q-tip last night. She has mild dizziness related to this. No nausea or vomiting. Patient denies blowing her nose. No drainage from the right ear. Related Data Allergies Allergy/AdvReac Type Severity Reaction Status Date / Time nifedipine AdvReac Mild SOB Verified 12/11/22 07:13 Review of Systems Constitutional: Constitutional: Denies chills, Reports fatigue and Denies fever(s) ENT: Reports dizziness, Reports nasal congestion and Reports sore throat Comments: Decreased hearing left side Respiratory: Respiratory: Denies cough and Denies dyspnea PMFSH Past Medical History Medical History (Updated 12/11/22 @ 07:42 by Donn Yang MD) Chest pain Contusion of hip, right Coronary artery disease COVID-[address] elevation myocardial infarction (STEMI) Hyperlipidemia MDD (major depressive disorder), recurrent episode, moderate Mitral regurgitation Squeezing chest pain Surgical History Surgical History History of section x2 Stented coronary artery Family History Family History Grandparent Diabetes mellitus Acute myocardial infarction Cancer unknown Father Acute myocardial infarction, Onset Age: 50 Alzheimer disease Other Family history of malignant neoplasm Family history of type 2 diabetes mellitus Hypertension Social History Social History Social History: Smoking packs per day: 0.5 Smoking cigarettes per day: 10.0 Years smoked: 20 Smoking pack-years: 10.00 Smoking status: Never smoker Tobacco type: cigarettes Second hand tobacco smoke exposure: No Alcohol intake: current Alcohol use details: Occasionally Substance use: never Substance use type: does not use Living arrangements: with family Occupation/Education: occupation Gender identity (if verbalized by the patient): Female Sexual Orientation (if Verbalized by the Patient): Straight or Heterosexual Spiritual care concerns: No Exam Narrative: GENERAL: Well-appearing, well-nourished, and in no acute distress. HEAD: Normocephalic, atraumatic. EYES: PERRL and EOMI. ENT: Mucous membranes moist. Right tympanic membrane pearly mulligan and nonbulging. Ear canal free of debris. Left ear canal with bloody drainage. Unable to see the rupture of eardrum however the eardrum is inflamed. No mastoid tenderness bilaterally. NEURO: Alert and oriented x3. PSYCH: Normal mood and affect. Course Course Emergency Course: Patient resting comfortably. Informed of results. Discussed keeping Q-tips out of her ears and letting her ear heal. Patient will be prescribed Ciprodex for infection/perforation. Recommend follow-up with PCP. Vital Signs Vital signs: Vital Signs Temperature 97.3 F L 12/11/22 07:13 Pulse Rate 99 12/11/22 07:13 Respiratory Rate 14 12/11/22 07:13 Blood Pressure 164/86 H 12/11/22 07:13 Pulse Oximetry 99 12/11/22 07:13 Oxygen Delivery Room Air 12/11/22 07:13 Temperature 97.3 F L 12/11/22 07:13 Pulse Rate 99 12/11/22 07:13 Respiratory Rate 14 12/11/22 07:13 Blood Pressure 164/86 H 12/11/22 07:13 Pulse Oximetry 99 12/11/22 07:13 Oxygen Delivery
== END 2022-12-11 07:55 | disposition home or self-care (01) ==
LOC: ANHED 07:49
PROVIDERS: Emergency Provider Emergency Medicine; PCP Family Medicine
DX: H72.92 Unspecified perforation of tympanic membrane, left ear (principal); I25.10 Atherosclerotic heart disease of native coronary artery without angina pectoris; I25.2 Old myocardial infarction; I34.0 Nonrheumatic mitral (valve) insufficiency; E78.5 Hyperlipidemia, unspecified; Z95.5 Presence of coronary angioplasty implant and graft
CPT/HCPCS: 99283

== ENCOUNTER 2022-12-31 10:17 | Outpatient (CLI) | payer OTHER, SELFPAY | END 2022-12-31 10:18 | disposition home or self-care (01) | LOC: ANHAUDIO 10:17 | PROVIDERS: PCP Family Medicine; Visit Provider Otolaryngology | DX: H66.92 Otitis media, unspecified, left ear (principal); H72.93 Unspecified perforation of tympanic membrane, bilateral; A49.1 Streptococcal infection, unspecified site | CPT/HCPCS: 92557; 92567 ==

== ENCOUNTER → 2023-05-28 10:06 | Outpatient (CLI) | payer BC, SELFPAY ==
--- NOTE | ~2023-05-28 | MM_ITS ---
EXAMINATION: MM screening agustin BI w sarah HISTORY: Screening TECHNIQUE: Craniocaudal and mediolateral oblique 3-D tomosynthesis images were obtained and synthetic 2-D images were generated. CAD analysis was submitted and interpreted. COMPARISON: No prior mammogram is available for comparison at this institution. BREAST PARENCHYMAL COMPOSITION: Breast composed of scattered areas of fibroglandular density FINDINGS: There are bilateral asymmetries centered in the upper outer quadrant of the breasts. There are no suspicious cluster of calcifications. There is possible architectural distortion in the upper outer quadrant of the right breast. IMPRESSION: 1. Bilateral breast asymmetries, upper outer quadrants. 2. Recommend comparison to previous outside mammograms if available. If not available, Additional sp ot compression and mediolateral views with possible follow-up breast ultrasound recommended. Reviewed, dictated and finalized at location A. IMPRESSION: 1. Bilateral breast asymmetries, upper outer quadrants. 2. Recommend comparison to previous outside mammograms if available. If not annie ilable, Additional spot compression and mediolateral views with possible follo w-up breast ultrasound recommended.
== END ==
PROVIDERS: PCP Family Medicine; Visit Provider Family Medicine
DX: Z12.31 Encounter for screening mammogram for malignant neoplasm of breast (principal); R92.8 Other abnormal and inconclusive findings on diagnostic imaging of breast
CPT/HCPCS: 77063; 77067

== ENCOUNTER 2023-09-03 09:09 | Outpatient (CLI) | payer BC, SELFPAY ==
--- NOTE | ~2023-09-03 | MMUS_ITS ---
EXAMINATION: MM diagnostic agustin BI w sarah, US breast BI limited HISTORY: Bilateral breast asymmetries on screening mammogram TECHNIQUE: Additional 3-D tomosynthesis images of the breasts were performed and synthetic 2-D images were generated. CAD analysis was submitted and interpreted. High resolution limited bilateral breast ultrasound was performed. COMPARISON: 05/28/2023 BREAST PARENCHYMAL COMPOSITION: There are scattered areas of fibroglandular density. FINDINGS: MAMMOGRAPHIC FINDINGS: No suspicious mass, calcification, or architectural distortion are identified in either breast to sug gest malignancy. There has been no suspicious interval change. ULTRASOUND: No suspicious cystic or solid mass is identified with targeted ultrasound in the upper outer quadrant s of the breasts. IMPRESSION: 1. No mammographic or sonographic evidence of malignancy. 2. Recommend routine screening mammography in one year. BI-RADS Category 1: Negative Reviewed, dictated and finalized at location A. CTURAL ARCHITECT IMPRESSION: 1. No mammographic or sonographic evidence of malignancy. 2. Recommend routine screening mammography in one year. BI-RADS Category 1: Negative
== END 2023-09-03 09:10 ==
LOC: MICIMG 09:10
PROVIDERS: PCP Physician Assistant; Visit Provider Physician Assistant
DX: R92.8 Other abnormal and inconclusive findings on diagnostic imaging of breast (principal)
CPT/HCPCS: 76642; 77062; 77066; G0279